=== PATIENT | male | born 1995 | race African-American/Black ===

== ENCOUNTER 2022-10-05 04:58 | Emergency (ER) | payer SELFPAY ==
[2022-10-05] MEDS ORDERED: guaiFENesin/Codeine Phosphate 100 mg/10 mg 5 ml UD Cup PO SCH (05:45)
[2022-10-05] MEDS ORDERED: guaiFENesin/Codeine Phosphate 100 mg/10 mg 5 ml UD Cup ONE (05:47)
== END 2022-10-05 05:46 | disposition home or self-care (01) ==
LOC: CSHERS 04:58
DX: J40 Bronchitis, not specified as acute or chronic (principal); F17.290 Nicotine dependence, other tobacco product, uncomplicated
CPT/HCPCS: 99283